=== PATIENT | male | born 1955 | race Caucasian/White ===

== ENCOUNTER → 2017-07-09 | Outpatient (CLI) | payer BC | END | disposition home or self-care (01) | LOC: KCIC 12:04 | DX: J06.9 Acute upper respiratory infection, unspecified (principal); R05 Cough; R09.89 Other specified symptoms and signs involving the circulatory and respiratory systems; Z87.891 Personal history of nicotine dependence | CPT/HCPCS: 71046 ==

== ENCOUNTER → 2017-08-02 | Outpatient (CLI) | payer BC | END | disposition home or self-care (01) | LOC: KCIC 12:10 | DX: M95.4 Acquired deformity of chest and rib (principal); R07.81 Pleurodynia | CPT/HCPCS: 71100 ==

== ENCOUNTER → 2017-08-03 | Outpatient (CLI) | payer BC | END | disposition home or self-care (01) | LOC: KCIC US 09:38 | DX: K76.9 Liver disease, unspecified (principal); N28.1 Cyst of kidney, acquired; R16.1 Splenomegaly, not elsewhere classified | CPT/HCPCS: 76700 ==

== ENCOUNTER → 2018-08-04 | Outpatient (CLI) | payer BC ==
[2014-07-15 03:52] VITALS: BP 128/77
[~2018-08-04] MED LIST: IBAN150T PO
--- NOTE | 2018-08-04 13:58 | KCIC ---
Chest radiograph 08/04/2018 12:00 AM INDICATION: Cough, rhonchi COMPARISON: August 02, 2017 rib series TECHNIQUE: Frontal and lateral views of the chest are provided. FINDINGS: The cardiomediastinal silhouette is within normal limits. There are no pleural effusions. There is no pulmonary vascular congestion. There is no pneumothorax. The lungs are clear. No significant osseous abnormality is identified. IMPRESSION: No acute cardiopulmonary process. Electronically signed by: Kierra Vázquez MD (08/04/2018 1:53 PM) [facility]
== END | disposition home or self-care (01) ==
LOC: KCIC 12:10
PROVIDERS: ATTEND Nurse Practitioner Family
DX: R05 Cough (principal); R09.89 Other specified symptoms and signs involving the circulatory and respiratory systems
CPT/HCPCS: 71046

== ENCOUNTER → 2019-02-20 | Outpatient (CLI) | payer BC ==
[2014-07-15 03:52] VITALS: BP 128/77
[~2019-02-20] MED LIST changes: +GADOTERATE 5 MMOL/10ML VIAL. IVP ONE; -IBAN150T PO; +IBAN150T15 PO
--- NOTE | 2019-02-20 16:53 | KCIC ---
STUDY: MRI of the left elbow with and without contrast INDICATION: Left elbow mass. COMPARISON: No prior cross-sectional imaging of the left elbow is available for comparison. TECHNIQUE: Multiplanar MR imaging of the left elbow performed both prior to and after the intravenous administration of 16 cc Dotarem. FINDINGS: Cutaneous marker seen at the medial aspect of the elbow at the level of the medial epicondyle. In the region of the cutaneous marker, a small oblong focus of T2 signal elevation with enhancement is seen along the posterior margin of the medial epicondyle and superficial to the cubital tunnel, reference image 17 series 7 and postcontrast axial image 17 series 16. This focus measures approximately 8 mm transverse x 3 mm AP x 9 mm CC. No additional focal abnormality in the region of the marker to account for the palpable area of concern. No acute fracture or suspicious marrow signal. Relatively mild degenerative changes at the elbow joint. The biceps and brachialis tendons are intact. The distal triceps is intact. No advanced tendinosis of the flexor or extensor origins. No acute injury to the radial or lateral collateral ligamentous structures. Muscular signal and bulk is within normal limits. The ulnar nerve is within normal limits for signal and caliber. There appears to be mild subcutaneous edema at the medial elbow. IMPRESSION: 1. Small oblong T2 hyperintense focus with enhancement located posterior to the medial epicondyle and superficial to the cubital tunnel. This structure measures approximately 8 mm transverse x 3 mm AP x 9 mm CC. This is in the region of the reported palpable abnormality and though nonspecific, could represent a small lymph node. A malignant process is considered unlikely but this could be further evaluated with ultrasound to evaluate for typical morphologic features of a lymph node. 2. No acute osseous or soft tissue abnormality at the elbow. Electronically signed by: JUAN KOROMA MD (02/20/2019 4:51 PM) [id number]
== END | disposition home or self-care (01) ==
LOC: KCIC MRI 14:16
PROVIDERS: ATTEND Orthopaedic Surgery
DX: R22.32 Localized swelling, mass and lump, left upper limb (principal); I10 Essential (primary) hypertension; Z87.891 Personal history of nicotine dependence; Z85.46 Personal history of malignant neoplasm of prostate
CPT/HCPCS: 73223; 82565; A9575

== ENCOUNTER 2019-08-23 07:17 | Emergency (ER) | payer BC ==
[~2019-08-23] VITALS: Ht 193 cm; Wt 93.0 kg
[~2019-08-23 07:17] MED LIST changes: -GADOTERATE 5 MMOL/10ML VIAL. IVP ONE
[2019-08-23 08:40] VITALS: BP 161/92
[2019-08-23] MEDS ORDERED: HYDR-2761 PO (09:01)
[2019-08-23] MEDS ORDERED: CYCL5TAB PO (09:01)
--- NOTE | 2019-08-23 09:01 | PHYS DOC ---
Past Medical History Past Medical History: Other Additional Past Medical Histor: OSTEOPENIA Past Medical History Hypertension, hyperlipidemia Past Surgical History: Other Additional Past Surgical Histo: WRIST FX Past Surgical History Left inguinal hernia repair Smoking Status: Current Every Day Smoker Alcohol Use: None Drug Use: None Adult General Chief Complaint Chief Complaint: LOWER BACK PAIN OR INJURY HPI HPI 64-year-old male presenting the emergency department today with right-sided low back pain after working yesterday. He denies recent falls. The pain as a sharp shooting moderate pain is worse with walking and movement of the back. He denies any numbness weakness or tingling. He denies dysuria polyuria or urinary retenti on. The pain is improved with rest. Review of systems is negative for chest pain shortness of breath head injury neck pain. All other review of systems negative. ED course: 64-year-old male presenting the [place] today with low back pain. He is nontender in the midline. He has tenderness of the right paraspinal musculature. We'll discharge with oral hydrocodone and Flexeril and referred her PCP in one to 2 days with possible outpatient physical therapy evaluation treatment. Allergies Allergies Allergies Coded Allergies Type Severity Reaction Last Updated Verified No Known Drug Allergies 07/15/14 No Physical Exam Physical Exam Constitutional: Well developed, well nourished, no acute distress, non-toxic appearance. HENT: Normocephalic, atraumatic, bilateral external ears normal, oropharynx moist, no oral exudates, nose normal. Eyes: PERRLA, EOMI, conjunctiva normal, no discharge. [] Neck: Normal range of motion, no tenderness, supple, no stridor. Cardiovascular:Heart rate regular rhythm, no murmur [] Lungs & Thorax: Bilateral breath sounds clear to auscultation Abdomen: Bowel sounds normal, soft, no tenderness, no masses, no pulsatile masses. [] Skin: Warm, dry, no erythema, no rash. Back: Nontender midline. No step-offs. He has some tenderness along the right paraspinal musculature. 5 out of 5 strength in lower extremities with normal reflexes the knees. Extremities: No tenderness, no cyanosis, no clubbing, ROM intact, no edema. Neurologic: Alert and oriented X 3, normal motor function, normal sensory function, no focal deficits noted. Psychologic: Affect normal, judgement normal, mood normal. [] EKG EKG [] Radiology/Procedures Radiology/Procedures [] Course & Med Decision Making Course & Med Decision Making Pertinent Labs and Imaging studies reviewed. (See chart for details) [] Dragon Disclaimer Dragon Disclaimer This electronic medical record was generated, in whole or in part, using a voice recognition dictation system. Departure Departure Impression: Primary Impression: Low back pain Disposition: HOME, SELF-CARE Condition: STABLE Referrals: YOHANA TAVERA MD (PCP) Patient Instructions: Low Back Sprain with Rehab[facility] Additional Instructions: Thank you for allowing us to participate in your care today. Return to the emergency department you have any new or worsening symptoms, or if you are concerned for any reason. Return to emergency department if you have any new or concerning symptoms including but not limited to fever, chills, nausea, vomiting, intractable pain, any new rashes, chest pain, shortness of air, uncontrolled bleeding, difficulty breathing, and/or vision loss. Follow up with your primary care physician within 1-2 days. Call your Primary Doctor tomorrow and inform them of your visit today. If you do not have a primary care provider we are happy to provide you with a list of our primary care providers contact information. This condition should be evaluated by your primary care physician and any recommended consulting services for continued management within 2 days after discharge. If at any time, you are having difficulty getting into your primary care doctor or a specialist, return to the emergency department. Scripts Hydrocodone Bit/Acetaminophen (HYDROCODONE-APAP 5-325 ) 1 Tab Tablet 1 TAB PO PRN Q8HRS PRN for sev, #8 TAB 0 Refills Prov: VICKY VALERA MD 08/23/19 Cyclobenzaprine Hcl (CYCLOBENZAPRINE HCL) 5 Mg Tablet 1 TAB PO TID PRN PRN for PAIN, #10 TAB Prov: VICKY VALERA MD 08/23/19 VICKY VALERA MD Aug 23, 2019 09:01
== END 2019-08-23 09:05 | disposition home or self-care (01) ==
LOC: ER 07:17
DX: M54.5 Low back pain (principal); I10 Essential (primary) hypertension; E78.5 Hyperlipidemia, unspecified; F17.200 Nicotine dependence, unspecified, uncomplicated
CPT/HCPCS: 99283

== ENCOUNTER → 2019-09-01 | Outpatient (CLI) | payer BC ==
[2019-08-23 08:40] VITALS: BP 161/92
[~2019-09-01] MED LIST changes: +CYCL5TAB PO; +HYDR-2761 PO
--- NOTE | 2019-09-01 16:35 | KCIC ---
INDICATION: Osteoporosis screening. History of fracture. COMPARISON: 04/11/2015 TECHNIQUE: Bone densitometry was performed through the lumbar spine and proximal femur. FINDINGS: Lumbar Spine: BMD: 1.26 T-Score: 1.5 Increased by 4% from prior Proximal Femur: BMD: 0.88 T-Score: -1.0 Decreased by 1% from prior IMPRESSION: 1. Lumbar spine falls within the normal range. 2. Proximal femur falls within the osteopenic range. Electronically signed by: Justin Cano MD (09/01/2019 4:31 PM) [facility] [place]
== END | disposition home or self-care (01) ==
LOC: KCIC DEXA 14:25
PROVIDERS: ATTEND Nurse Practitioner Family
DX: M85.88 Other specified disorders of bone density and structure, other site (principal)
CPT/HCPCS: 77080

== ENCOUNTER → 2019-12-11 | Outpatient (CLI) | payer BC ==
--- NOTE | 2019-12-11 17:02 | RAD ---
CT LOW DOSE LUNG SCREENING Indication: Tobacco abuse, cancer screening Technique: Noncontrast CT imaging was performed of the chest as per low dose screening protocol, multiplanar reconstruction images submitted. One or more of the following individualized dose reduction techniques were utilized for this examination: 1. Automated exposure control 2. Adjustment of the mA and/or kV according to patient size 3. Use of iterative reconstruction technique. Comparison: None Findings: There is a tiny 1-2 mm nodule along the right major fissure image 234 series 2. There is a 3 mm right upper lobe nodule near the apex best seen on axial image 47 series 2. There is no infiltrate, pleural or pericardial fluid, or pneumothorax. There are likely hemangiomas of the right T3 and L1 vertebral bodies, some associated trabecular thickening. There is also small lytic focus of the right T6 vertebral body too small to further accurately characterize. There is mild superior thoracic levoscoliosis. There are some small mediastinal nodes, largest superior right paratracheal node about 0.7 cm short axis dimension. There are multiple nonspecific bilateral axillary nodes although not considered significantly enlarged in short axis dimension, largest on the right about 0.7 cm and on the left about 0.8 cm. Minimal density in the left lateral trachea is more likely mucus. There is coronary calcification. IMPRESSION: 1. There are a couple of small pulmonary nodules as stated. Lung RADS category 2, [address] follow-up recommended. 2. There are some lytic foci of the vertebral bodies as stated, largest with features of hemangiomas, small focus of T6 vertebral body otherwise difficult to accurately characterize. 3. Not considered significantly enlarged, there are multiple nonspecific axillary nodes bilaterally. 4. There is coronary calcification. Electronically signed by: Daryl Nolan MD (12/11/2019 4:59 PM) [id number]
== END | disposition home or self-care (01) ==
LOC: CT 16:30
PROVIDERS: ATTEND Family Medicine
DX: Z12.2 Encounter for screening for malignant neoplasm of respiratory organs (principal); Z72.0 Tobacco use; R91.1 Solitary pulmonary nodule
CPT/HCPCS: G0297

== ENCOUNTER → 2020-01-22 | Outpatient (CLI) | payer BC ==
[2020-01-22 15:59] LABS: BASO % 0 % (0-3); EOS # 0.2 x10^3/uL (0.0-0.7); EOS % 4 % (0-3); HEMATOCRIT 36.9 % (39.0-53.0); HEMOGLOBIN 12.9 g/dL (13.0-17.5); LYMPH % 33 % (24-48); MEAN CORPUSCULAR HEMOGLOBIN 35 pg (25-35); MEAN CORPUSCULAR HGB CONC 35 g/dL (31-37); MEAN CORPUSCULAR VOLUME 100 fL (79-100); MONO # 0.7 x10^3/uL (0.0-1.1); MONO % 11 % (0-9); NEUT # 3.2 x10^3/uL (1.8-7.7); NEUT % 52 % (31-73); PLATELET COUNT 266 x10^3/uL (140-400); RED CELL DISTRIBUTION WIDTH 13.1 % (11.5-14.5); WHITE BLOOD COUNT 6.1 x10^3/uL (4.0-11.0)
[2020-01-22 16:49] LABS: CREATININE 1.8 mg/dL (0.7-1.3); GFR 37.9; POTASSIUM 4.1 mmol/L (3.5-5.1)
[2020-01-23 15:13] LABS: KAPPA FREE 24.4 mg/L (3.3-19.4); KAPPA LAMBDA RATIO 1.33 (0.26-1.65); LAMBDA FREE 18.4 mg/L (5.7-26.3)
[2020-01-25 13:12] LABS: ALBUM 4.2 g/dL (2.9-4.4); ALPHA 1 0.1 g/dL (0.0-0.4); ALPHA 2 0.7 g/dL (0.4-1.0); BETA 0.8 g/dL (0.7-1.3); GAMMA 0.9 g/dL (0.4-1.8); PROTEIN TOTAL 6.8 g/dL (6.0-8.5); SPEP AG RATIO 1.6 (0.7-1.7)
== END ==
LOC: ONCLAB 15:33
PROVIDERS: ATTEND Internal Medicine Hematology & Oncology
DX: M85.80 Other specified disorders of bone density and structure, unspecified site (principal)
CPT/HCPCS: 36415; 80048; 82728; 83520; 83540; 83550; 84165; 85025; 85045

== ENCOUNTER → 2020-07-29 | Outpatient (CLI) | payer BC ==
[~2020-07-29] MED LIST changes: +IOHEXOL 300 MG/ML 100ML VIAL. IV ONE
--- NOTE | 2020-07-29 09:03 | KCIC ---
EXAM: CT Thoracic Spine without IV contrast INDICATION: Reason: Evaluate for osteolytic lesion. Abnormality seen on CT Chest / Spl. Instructions : 90ml Omni 300 / History: Smoker. TECHNIQUE: Multi-detector row CT images were obtained through the thoracic spine without the use of IV contrast. Post-processing sagittal and coronal reconstructed images were obtained for interpretati on. All CT scans performed at this facility utilize dose optimization techniques as appropriate to th e exam, including the following: Automated exposure control and adjustment of the mA and/or KV accord ing to patient size (this includes techniques or standardized protocols for targeted exams where dose is indication/reason for exam). COMPARISON: Low-dose CT lung cancer screening on 12/11/2019 FINDINGS: ALIGNMENT: Alignment is within normal limits. OSSEOUS: Coarsening of the osseous trabecula is present at multiple levels, most conspicuously at T3 and overall is most compatible with intraosseous hemangiomas. There is no endosteal scalloping, wade ical erosion or soft tissue mass. The small lucency at T6 previously noted is not as apparent on this examination. DISC SPACES: Multilevel disc degenerative change with endplate spurring and disc space narrowing is present. There are Schmorl's nodes at multiple levels in the lower thoracic spine. FACET JOINTS: Unremarkable. SPINAL CANAL: Unremarkable. NEUROFORAMINA: Unremarkable. SOFT TISSUES: Unremarkable. IMPRESSION: 1. No acute or aggressive appearing osseous lesions identified in the thoracic spine. 2. Multilevel degenerative spondylosis and lucencies in the vertebral bodies that are most suggestive of intraosseous hemangiomas. MRI is the study of choice in assessing for any marrow abnormalities if clinically suspected. Electronically signed by: Angela Long MD (07/29/2020 9:00 AM) [id number]
== END ==
LOC: KCIC CT 07:57
PROVIDERS: ATTEND Internal Medicine Hematology & Oncology
DX: M47.814 Spondylosis without myelopathy or radiculopathy, thoracic region (principal); M85.88 Other specified disorders of bone density and structure, other site; M51.44 Schmorl's nodes, thoracic region; E78.00 Pure hypercholesterolemia, unspecified
CPT/HCPCS: 72129; 82565; Q9967

== ENCOUNTER → 2021-02-24 | Outpatient (CLI) | payer BC ==
[~2021-02-24] MED LIST changes: -IOHEXOL 300 MG/ML 100ML VIAL. IV ONE
[2021-02-24 15:22] LABS: BASO % 0 % (0-3); EOS # 0.4 x10^3/uL (0.0-0.7); EOS % 6 % (0-3); HEMATOCRIT 34.8 % (39.0-53.0); HEMOGLOBIN 12.1 g/dL (13.0-17.5); LYMPH # 2.3 x10^3/uL (1.0-4.8); LYMPH % 35 % (24-48); MEAN CORPUSCULAR HEMOGLOBIN 35 pg (25-35); MEAN CORPUSCULAR HGB CONC 35 g/dL (31-37); MEAN CORPUSCULAR VOLUME 102 fL (79-100); MONO # 0.6 x10^3/uL (0.0-1.1); MONO % 9 % (0-9); NEUT # 3.2 x10^3/uL (1.8-7.7); NEUT % 50 % (31-73); PLATELET COUNT 242 x10^3/uL (140-400); RED BLOOD COUNT 3.41 x10^6/uL (4.30-5.70); RED CELL DISTRIBUTION WIDTH 12.8 % (11.5-14.5); WHITE BLOOD COUNT 6.5 x10^3/uL (4.0-11.0)
[2021-02-24 16:23] LABS: CALCIUM 9.1 mg/dL (8.5-10.1); CREATININE 1.3 mg/dL (0.7-1.3); GFR 55.1
[2021-02-24 16:41] LABS: ALBUMIN 3.8 g/dL (3.4-5.0); ALBUMIN/GLOBULIN RATIO 1.1 (1.0-1.7); TOTAL BILIRUBIN 0.7 mg/dL (0.2-1.0); TOTAL PROTEIN 7.3 g/dL (6.4-8.2)
== END ==
LOC: ONCLAB 14:17
PROVIDERS: ATTEND Internal Medicine Hematology & Oncology
DX: M85.80 Other specified disorders of bone density and structure, unspecified site (principal)
CPT/HCPCS: 36415; 80053; 85025

== ENCOUNTER → 2021-05-19 | Outpatient (CLI) | payer BC ==
--- NOTE | 2021-05-19 16:05 | KCIC ---
EXAM: Right knee, 3 views. HISTORY: Pain. COMPARISON: None. FINDINGS: 3 views of the right knee are obtained. There is mild medial compartment and minimal patell ofemoral compartment spurring. There is trace joint fluid. There is no fracture, dislocation or sublu xation. IMPRESSION: Mild medial compartment and minimal patellofemoral compartment osteoarthritis of the righ t knee with trace joint effusion. Electronically signed by: Telma Means MD (05/19/2021 4:02 PM) [id number]
== END ==
LOC: KCIC 15:32
PROVIDERS: ATTEND Family Medicine
DX: M17.11 Unilateral primary osteoarthritis, right knee (principal)
CPT/HCPCS: 73562

== ENCOUNTER 2021-09-17 10:12 | Observation (INO) | payer BC, MEDICARE ==
[~2021-09-17] VITALS: Ht 193 cm; Wt 91.3 kg
--- NOTE | 2021-09-17 10:50 | ED.ADGEN ---
Past Medical History Past Medical History: Anxiety, GERD, High Cholesterol, Hypertension, Other Additional Past Medical Histor: OSTEOPENIA Past Surgical History: Other Additional Past Surgical Histo: WRIST FX; left elbow; hernia; prostate biopsy Smoking Status: Current Every Day Smoker Alcohol Use: Heavy Additional Information: 2 GLASSES OF WHISKEY AND 7UP DAILY Drug Use: None General Adult EDM: Chief Complaint: TONGUE SWELLING/INJURY HPI: HPI: Patient is a 66 year old male coming in for swelling to left side of his tongue. Patient states that he was fine last time was bed, woke up melanite ate some oysters soup, then woke up this morning with a tongue swelling. Patient denies any history of allergic reactions. Patient states he takes a blood pressure medication but does not know what the name of it is. Review of Systems: Review of Systems: All other systems within normal limits except for as noted in the HPI Current Medications: Current Medications Medications (Trade) Dose Ordered Sig/Tommy Start Time Stop Time Status Last Admin Dose Admin Diphenhydramine HCl (Benadryl) 50 mg 1X ONCE 09/17/21 11:00 09/17/21 11:01 DC 09/17/21 11:03 50 MG Epinephrine HCl (Adrenalin) 0.3 mg 1X ONCE 09/17/21 11:00 09/17/21 11:01 DC 09/17/21 10:56 0.3 MG Methylprednisolone Sodium Succinate (SOLU-Medrol 125MG VIAL) 125 mg 1X ONCE 09/17/21 11:00 09/17/21 11:01 DC 09/17/21 11:02 125 MG Allergies: Allergies: Allergies Coded Allergies Type Severity Reaction Last Updated Verified No Known Drug Allergies 07/15/14 No Physical Exam: PE: Constitutional: Well developed, well nourished, no acute distress, non-toxic appearance. [] HENT: Normocephalic, atraumatic, bilateral external ears normal, nose normal. Swelling to left tongue [] Eyes: PERRLA, conjunctiva normal, no discharge. [] Neck: No rigidity, supple, no stridor. [] Cardiovascular: Regular rate and rhythm, brisk cap refill [] Lungs & Thorax: Non labored symmetric respirations, no tachypnea or respiratory distress [] Abdomen: Soft, nondistended. Skin: Warm, dry, no erythema, no rash. [] Back: Unremarkable Extremities: No deformities, range of motion grossly intact, no lower extremity edema [] Neurologic: Alert and oriented X 3, no focal deficits noted. [] Psychologic: Affect normal, judgement normal, mood normal. [] Current Patient Data: Labs: Laboratory Tests Test 09/17/21 11:00 White Blood Count 7.4 x10^3/uL (4.0-11.0) Red Blood Count 3.68 x10^6/uL (4.30-5.70) L Hemoglobin 12.6 g/dL (13.0-17.5) L Hematocrit 36.2 % (39.0-53.0) L Mean Corpuscular Volume 98 fL (79-100) Mean Corpuscular Hemoglobin 34 pg (25-35) Mean Corpuscular Hemoglobin Concent 35 g/dL (31-37) Red Cell Distribution Width 13.2 % (11.5-14.5) Platelet Count 270 x10^3/uL (140-400) Neutrophils (%) (Auto) 60 % (31-73) Lymphocytes (%) (Auto) 23 % (24-48) L Monocytes (%) (Auto) 11 % (0-9) H Eosinophils (%) (Auto) 7 % (0-3) H Basophils (%) (Auto) 0 % (0-3) Neutrophils # (Auto) 4.4 x10^3/uL (1.8-7.7) Lymphocytes # (Auto) 1.7 x10^3/uL (1.0-4.8) Monocytes # (Auto) 0.8 x10^3/uL (0.0-1.1) Eosinophils # (Auto) 0.5 x10^3/uL (0.0-0.7) Basophils # (Auto) 0.0 x10^3/uL (0.0-0.2) Sodium Level 135 mmol/L (136-145) L Potassium Level 4.1 mmol/L (3.5-5.1) Chloride Level 99 mmol/L (98-107) Carbon Dioxide Level 28 mmol/L (21-32) Anion Gap 8 (6-14) Blood Urea Nitrogen 18 mg/dL (8-26) Creatinine 1.3 mg/dL (0.7-1.3) Estimated GFR (Cockcroft-Gault) 54.9 BUN/Creatinine Ratio 14 (6-20) Glucose Level 109 mg/dL (70-99) H Calcium Level 9.4 mg/dL (8.5-10.1) Total Bilirubin 0.6 mg/dL (0.2-1.0) Aspartate Amino Transferase (AST) 26 U/L (15-37) Alanine Aminotransferase (ALT) 35 U/L (16-63) Alkaline Phosphatase 94 U/L (46-116) Total Protein 7.6 g/dL (6.4-8.2) Albumin 3.6 g/dL (3.4-5.0) Albumin/Globulin Ratio 0.9 (1.0-1.7) L Laboratory Tests 09/17/21 11:00 Laboratory Tests 09/17/21 11:00 Vital Signs: Vital Signs Date Time Temp Pulse Resp B/P (MAP) Pulse Ox O2 Delivery O2 Flow Rate FiO2 09/17/21 11:28 108 108/59 (75) 95 Room Air 09/17/21 10:30 98.6 20 98.6 EKG: EKG: [] Heart Score: C/O Chest Pain: No Risk Factors: Risk Factors: DM, Current or recent (<one month) smoker, HTN, HLP, family history of CAD, obesity. Risk Scores: Score 0 - 3: 2.5% MACE over next 6 weeks - Discharge Home Score 4 - 6: 20.3% MACE over next 6 weeks - Admit for Clinical Observation Score 7 - 10: 72.7% MACE over next 6 weeks - Early Invasive Strategies Radiology/Procedures: Radiology/Procedures: [] Course & Med Decision Making: Course & Med Decision Making Epinephrine, diphenhydramine and Solu-Medrol were given. Will admit for observation for angioedema and airway protection Dragon Disclaimer: Dragon Disclaimer: This electronic medical record was generated, in whole or in part, using a voice recognition dictation system. Departure Departure Impression: Primary Impression: Angioedema due to angiotensin converting enzyme inhibitor (VERÓNICA-I) Disposition: ADMITTED INPATIENT Admitting Physician: HENRY Condition: STABLE Referrals: SAMANTHA MERINO MD (PCP) Scripts Methylprednisolone (MEDROL) 4 Mg Tab.ds.pk 1 PKG PO UD for ., #1 PKG Prov: NISHA LOPEZL K III DO 09/17/21 MARY WARREN MD Sep 17, 2021 10:50
[2021-09-17] MEDS ORDERED: methylPREDNISolone SOD SUCC PF 125 MG/2 ML VIAL. IV ONE (11:00)
[2021-09-17] MEDS ORDERED: diphenhydrAMINE 50 MG/ML VIAL IVP ONE (11:00)
[2021-09-17] MEDS ORDERED: EPINEPHrine 1 MG/ML VIAL SQ ONE (11:00)
[2021-09-17 11:27] LABS: CALCIUM 9.4 mg/dL (8.5-10.1); CREATININE 1.3 mg/dL (0.7-1.3); GFR 54.9; POTASSIUM 4.1 mmol/L (3.5-5.1)
[2021-09-17 11:33] LABS: ALBUMIN 3.6 g/dL (3.4-5.0); ALBUMIN/GLOBULIN RATIO 0.9 (1.0-1.7); BASO % 0 % (0-3); EOS # 0.5 x10^3/uL (0.0-0.7); EOS % 7 % (0-3); HEMATOCRIT 36.2 % (39.0-53.0); HEMOGLOBIN 12.6 g/dL (13.0-17.5); LYMPH # 1.7 x10^3/uL (1.0-4.8); LYMPH % 23 % (24-48); MEAN CORPUSCULAR HEMOGLOBIN 34 pg (25-35); MEAN CORPUSCULAR HGB CONC 35 g/dL (31-37); MEAN CORPUSCULAR VOLUME 98 fL (79-100); MONO # 0.8 x10^3/uL (0.0-1.1); MONO % 11 % (0-9); NEUT # 4.4 x10^3/uL (1.8-7.7); NEUT % 60 % (31-73); PLATELET COUNT 270 x10^3/uL (140-400); RED BLOOD COUNT 3.68 x10^6/uL (4.30-5.70); RED CELL DISTRIBUTION WIDTH 13.2 % (11.5-14.5); TOTAL BILIRUBIN 0.6 mg/dL (0.2-1.0); TOTAL PROTEIN 7.6 g/dL (6.4-8.2); WHITE BLOOD COUNT 7.4 x10^3/uL (4.0-11.0)
[2021-09-17] MEDS ORDERED: fentaNYL PF VIAL 100 MCG/2 ML VIAL IVP PRN (12:30)
[2021-09-17] MEDS ORDERED: ACETAMINOPHEN 325 MG TABLET. PO PRN (12:30)
[2021-09-17] MEDS ORDERED: ONDANSETRON PF 4 MG/2 ML VIAL. IVP PRN (12:30)
[2021-09-17 12:56] LABS: INFLUENZA A PATIENT NEGATIVE (NEGATIVE); INFLUENZA B PATIENT NEGATIVE (NEGATIVE)
[2021-09-17 13:20] VITALS: BP 118/81
[2021-09-17] MEDS ORDERED: METH4TAB2 PO (13:26)
[2021-09-17] MEDS ORDERED: methylPREDNISolone SOD SUCC PF 40 MG/ML VIAL. IV ONE (15:00)
--- NOTE | 2021-09-17 15:32 | SSS ---
DATE OF SERVICE: 09/17/2021 ADMIT DATE: 09/17/2021 CHIEF COMPLAINT: Left tongue swelling. HISTORY OF PRESENT ILLNESS: The patient is a pleasant middle-aged male who is on lisinopril and has been for years. He also ate some oysters last night. Today, he developed left tongue swelling. The ER doctor gave him steroids and Benadryl and Pepcid and the patient's symptoms are starting to resolve. We are admitting the patient for observation. The patient is now being examined in room 524 where his symptoms are really improving. He is wanting to go home. We might let him go home this afternoon. PAST MEDICAL HISTORY: Hypertension, muscle spasms, chronic pain. ALLERGIES: None. FAMILY HISTORY: Diabetes. SOCIAL HISTORY: He does not drink, smoke or take drugs. He is semi-retired. MEDICATIONS: Reviewed. Please refer to the MRAD. REVIEW OF SYSTEMS: GENERAL: No history of weight change, weakness or fevers. SKIN: No bruising, hair changes or rashes. EYES: No blurred, double or loss of vision. NOSE AND THROAT: No history of nosebleeds, hoarseness or sore throat. HEART: No history of palpitations, chest pain or shortness of breath on exertion. LUNGS: Denies cough, hemoptysis, wheezing or shortness of breath. GASTROINTESTINAL: Denies changes in appetite, nausea, vomiting, diarrhea or constipation. GENITOURINARY: No history of frequency, urgency, hesitancy or nocturia. NEUROLOGIC: Denies history of numbness, tingling, tremor or weakness. PSYCHIATRIC: No history of panic, anxiety or depression. ENDOCRINE: No history of heat or cold intolerance, polyuria or polydipsia. EXTREMITIES: Denies muscle weakness, joint pain, pain on walking or stiffness. PHYSICAL EXAMINATION: VITALS: Within normal limits and are stable. GENERAL: No apparent distress. Alert and oriented. HEENT: His tongue is very slightly swollen, 95% resolved. EYES: Extraocular muscles are intact, pupils are equally round and reactive to light and accommodation. MUSCULOSKELETAL: Well developed, well nourished, good range of motion. ENDOCRINE: No thyromegaly was palpated. LYMPHATICS: No cervical chain or axillary nodes were noted. HEMATOPOIETIC: No bruising. NECK: Supple, no JVD, no thyromegaly was noted. LUNGS: Clear to auscultation in all lung benavidez without rhonchi or wheezing. HEART: RRR, S1, S2 present. Peripheral pulses intact, no obvious murmurs were noted. ABDOMEN: Soft, nontender. Positive bowel sounds, no organomegaly, normal bowel sounds. EXTREMITIES: Without any cyanosis, clubbing, or edema. Pedal pulses intact, Homans sign is negative. NEUROLOGIC: Normal speech, normal tone. A and O x 3, moves all extremities, no obvious focal deficits. PSYCHIATRIC: Normal affect, normal mood. Stable. SKIN: No ulcerations or rashes, good skin turgor, no jaundice. VASCULAR: Good capillary refill, neurovascular bundle appears to be intact. LABORATORY DATA: Hemoglobin is 12.6. Electrolytes are normal other than sodium . COVID testing negative. Influenza testing negative. ASSESSMENT AND PLAN: Resolving angioedema. We started the patient on steroids. I am going to go ahead and give him a Medrol Dosepak and [id number] Pepcid and Benadryl. We will let him go this evening if he is doing well. DISPOSITION: Home. ACTIVITY: As tolerated. DIET: Low sodium. MEDICATIONS: Please see the MRAD. Medrol Dosepak, cyclobenzaprine 5 t.i.d. p.r.n., p.r.n. Pettus 5 mg q. 6 and Boniva 150 p.o. once a month. TOTAL TIME: 32 minutes. ANKUR/MAXINE/LARRY DR: ANKUR/niels TID: [id number]
--- NOTE | 2021-09-17 16:40 | NUR ---
Discharge Note: Patient discharged per okay from Dr. Beckman. Patient stated is feeling better; tongue almost back to normal size. Patient still had mild dry cough. Patient educated to take medication recommended by Dr. Beckman with Medrol dose pack. Patient did state that he made a follow up appointment with his primary care physician tomorrow at 1400. Patient educated to add lisinopril to allergy list. JANKI STRATTON Discharge instructions and discharge home medications reviewed with Patient and a copy given. All questions have been answered and understanding verbalized. The following instructions and handouts were given: discharge instructions, new prescription, education and follow up recommendations. Discontinued lines and drains: Peripheral IV intact. Patient discharged to Home or Self Care with Self via Ambulated off unit by this RN.
== END 2021-09-17 16:51 | disposition home or self-care (01) ==
LOC: ER 10:12 → 5 NORTH 11:30
PROVIDERS: ADMIT Internal Medicine; ATTEND Internal Medicine
DX: T78.3XXA Angioneurotic edema, initial encounter (principal); Z20.822 Contact with and (suspected) exposure to COVID-19; T46.4X5A Adverse effect of angiotensin-converting-enzyme inhibitors, initial encounter; K14.8 Other diseases of tongue; I10 Essential (primary) hypertension; M85.80 Other specified disorders of bone density and structure, unspecified site; E78.00 Pure hypercholesterolemia, unspecified; G89.29 Other chronic pain; F41.9 Anxiety disorder, unspecified; K21.9 Gastro-esophageal reflux disease without esophagitis; Z79.899 Other long term (current) drug therapy; Z98.890 Other specified postprocedural states; Z87.891 Personal history of nicotine dependence
CPT/HCPCS: 36415; 80053; 85025; 87428; 96372; 96374; 96375; 96376; 99284; G0378; J0171; J1200; J2920; J2930; U0003; G0379

== ENCOUNTER → 2021-09-29 | Outpatient (CLI) | payer MEDICARE ==
[2021-09-17 13:20] VITALS: BP 118/81
[~2021-09-29] MED LIST changes: +METH4TAB2 PO
--- NOTE | 2021-09-30 10:04 | KCIC ---
EXAM: CT CHEST WITHOUT CONTRAST (LDCT LUNG CANCER SCREENING). HISTORY: Risk factors for pulmonary malignancy. Cigarette smoking. TECHNIQUE: CT of the chest was performed without intravenous contrast using a low-dose lung screening protocol. Findings analysis is based on ACR Lung-RADS v1.1. *One or more of the following individual ized dose reduction techniques were utilized for this examination: 1. Automated exposure control. 2. Adjustment of the mA and/or kV according to patient size. 3. Use of iterative reconstruction technique. COMPARISON: 02/08/2020. FINDINGS: The heart is normal in size. There is coronary artery calcification. No pathologically enla rged lymph node is seen. The aorta is normal in caliber. There is no infiltrate, pleural effusion or pneumothorax. There is no suspicious pulmonary nodule. The previously described right apical nodule a ppears to be contiguous with adjacent linear pleural parenchymal scarring. There are similar-appearin g left apical pleural parenchymal scarring. The previously described 2 mm nodule along the right pricilla r fissure is decreased in size and consistent with a tiny fissural lymph node. There is no acute find ing involving the upper abdomen. There is no acute or suspicious osseous finding. There is multilevel degenerative change involving the thoracic spine. There are multiple thoracic endplate Schmorl's nod es. There are a few stable incidental benign osseous hemangiomas. IMPRESSION: 1. No suspicious pulmonary nodule. Lung RADS category 1:12 month low dose lung cancer screening CT is recommended. 2. No acute thoracic finding. 3. Coronary artery calcification. Electronically signed by: Telma Means MD (09/30/2021 9:32 AM) [facility]
== END ==
LOC: KCIC CT 14:53
PROVIDERS: ATTEND Nurse Practitioner
DX: R91.1 Solitary pulmonary nodule (principal); I25.10 Atherosclerotic heart disease of native coronary artery without angina pectoris; M47.819 Spondylosis without myelopathy or radiculopathy, site unspecified; F17.210 Nicotine dependence, cigarettes, uncomplicated
CPT/HCPCS: 71271

== ENCOUNTER → 2021-11-07 | Outpatient (CLI) | payer BC, MEDICARE ==
--- NOTE | 2021-11-07 16:29 | KCIC ---
Bone Densitometry History: Reason: OSTEOPENIA / Spl. Instructions: / History: Findings: Bone Densitometry was performed with dual photon absorption of the lumbar spine and proximal femurs. Lumbar Spine: Bone density is 1.289 g/cm2 for L1-L4. T-score is 1.8. Z-score is 2.6. This has increased 25 percent from baseline in 2.4 percent from 09/01/2019. Left total hip: Bone density is 0.910 g/cm2. T-score is -0.8. Z-score is 0.2. This has increased 5.6 percent from [facility] and 4.0 percent from 09/01/2019 IMPRESSION: Normal bone mineral density in the lumbar spine and left hip. World Health Organization definition of osteoporosis and osteopenia for women: normal equal s T score at or above -1.0 standard deviations; osteopenia equals T score between -1.0 and -2.5 stand tiago deviations; osteoporosis equals T score at or below -2.5 standard deviations. Electronically signed by: Nuzhat Anne MD (11/07/2021 4:26 PM) [id number]
== END ==
LOC: KCIC DEXA 14:39
PROVIDERS: ATTEND Nurse Practitioner
DX: M85.852 Other specified disorders of bone density and structure, left thigh (principal)
CPT/HCPCS: 77080